=== PATIENT | female | born 1955 | race Caucasian/White ===

== ENCOUNTER → 2019-10-24 12:06 | Outpatient (BNVA) | payer OTHER, SELFPAY | PROVIDERS: PCP Nurse Practitioner Family; Visit Provider Nurse Practitioner Family | DX: N39.0 Urinary tract infection, site not specified (principal); N39.41 Urge incontinence | CPT/HCPCS: 80053; 81001; 87086; 87186 ==

== ENCOUNTER → 2019-12-05 09:47 | Outpatient (BNVA) | payer OTHER, SELFPAY | PROVIDERS: PCP Nurse Practitioner Family; Visit Provider Urology | DX: N39.0 Urinary tract infection, site not specified (principal) | CPT/HCPCS: 81001 ==

== ENCOUNTER → 2021-08-05 11:19 | Outpatient (BNVA) | payer OTHER, SELFPAY | PROVIDERS: PCP Nurse Practitioner Family; Visit Provider Nurse Practitioner Family | DX: N39.41 Urge incontinence (principal); N39.0 Urinary tract infection, site not specified | CPT/HCPCS: 81003; 87086 ==

== ENCOUNTER → 2021-09-19 08:31 | Outpatient (BNVA) | payer MEDICARE, SELFPAY | PROVIDERS: PCP Nurse Practitioner Family; Visit Provider Urology | DX: N39.0 Urinary tract infection, site not specified (principal) | CPT/HCPCS: 81003; 99213 ==

== ENCOUNTER 2021-11-01 12:41 | Outpatient (CLI) | payer MEDICARE, SELFPAY ==
--- NOTE | 2021-11-01 12:54 | MM_ITS ---
WS: [id number] BILATERAL 3D TOMOSYNTHESIS DIGITAL SCREENING MAMMOGRAPHY WITH CAD CLINICAL INFORMATION: SCREEN HISTORY: Screening mammogram. No current complaints. COMPARISON: November 04, 2019 TECHNIQUE: Bilateral CC and MLO views. FINDINGS: Scattered fibroglandular densities bilaterally. No suspicious focal mass, asymmetry, calcifications, or architectural distortion. No evidence of malignancy. MM/[place] [id number] IMPRESSION: BI-RADS: 1-Negative FOLLOW UP: 1 Year Follow-up Recommend return to annual screening mammography.
== END 2021-11-01 12:42 | disposition home or self-care (01) ==
LOC: RAD 12:49
PROVIDERS: PCP Nurse Practitioner Family; Visit Provider Nurse Practitioner Family
DX: Z12.31 Encounter for screening mammogram for malignant neoplasm of breast (principal)
CPT/HCPCS: 77063; 77067

== ENCOUNTER → 2021-12-19 14:51 | Outpatient (BNVA) | payer MEDICARE, SELFPAY | PROVIDERS: PCP Nurse Practitioner Family; Visit Provider Urology | DX: N39.0 Urinary tract infection, site not specified (principal) | CPT/HCPCS: 81003; 87086; 99213 ==

== ENCOUNTER → 2022-01-15 14:47 | Outpatient (BNVA) | payer MEDICARE, SELFPAY | PROVIDERS: PCP Nurse Practitioner Family; Visit Provider Internal Medicine | DX: E11.9 Type 2 diabetes mellitus without complications (principal); N39.0 Urinary tract infection, site not specified; E78.2 Mixed hyperlipidemia; I10 Essential (primary) hypertension; E66.9 Obesity, unspecified; Z68.35 Body mass index [BMI] 35.0-35.9, adult; Z79.4 Long term (current) use of insulin | CPT/HCPCS: 99204 ==

== ENCOUNTER → 2022-01-17 08:06 | Outpatient (BNVA) | payer MEDICARE, SELFPAY | PROVIDERS: PCP Nurse Practitioner Family; Visit Provider Nurse Practitioner Family | DX: N39.0 Urinary tract infection, site not specified (principal) | CPT/HCPCS: 81003; 87086; 99213 ==

== ENCOUNTER 2022-04-14 15:48 | Outpatient (CLI) | payer MEDICARE, SELFPAY ==
[2022-04-14 16:50] LABS: Alanine Aminotransferase 15 U/L (0-33); Albumin Level 3.9 g/dL (3.5-5.2); Alkaline Phosphatase 115 U/L (35-105); Anion Gap 14.6 (5-19); Aspartate Amino Transferase 15 U/L (0-32); Blood Urea Nitrogen 32 mg/dL (8-23); Calcium 9.5 mg/dL (8.5-10.5); Carbon Dioxide 24 mmol/L (22-29); Chloride 103 mmol/L (98-107); Chol HDL Ratio 3.38 mg/dL (0.0-4.40); Cholesterol 169 mg/dL (0-200); Free T4 Free Thyroxine 1.15 ng/dL (0.82-1.77); Globulin 3.3 g/dL (1.3-4.6); Glomerular Filtration Rate 62.8 mL/min (90-130); Glucose 103 mg/dL (65-115); HDL Cholesterol 50 mg/dL (60-100); LDL Cholesterol Calculated 100 mg/dL (50-129); Osmolality Calculated 293 mOsm/kg (285-295); Potassium 3.6 mmol/L (3.5-5.1); Sodium 138 mmol/L (136-145); Thyroid Stimulating Hormone 4.02 uIU/mL (0.27-4.20); Total Bilirubin 0.3 mg/dL (0.15-1.2); Total Protein 7.2 g/dL (6.6-8.7); Triglycerides 95 mg/dL (0-150)
[2022-04-14 17:04] LABS: Estmated Average Glucose 114; Hemoglobin A1C 5.6 % (4.0-6.0)
== END 2022-04-14 15:49 | disposition home or self-care (01) ==
LOC: LAB 15:51
PROVIDERS: PCP Nurse Practitioner Family; Visit Provider Internal Medicine
DX: E11.9 Type 2 diabetes mellitus without complications (principal)
CPT/HCPCS: 36415; 80053; 80061; 83036; 84439; 84443

== ENCOUNTER → 2022-04-17 14:59 | Outpatient (BNVA) | payer MEDICARE, SELFPAY | PROVIDERS: PCP Nurse Practitioner Family; Visit Provider Internal Medicine | DX: E11.9 Type 2 diabetes mellitus without complications (principal); E78.2 Mixed hyperlipidemia; I10 Essential (primary) hypertension; N39.0 Urinary tract infection, site not specified; E66.9 Obesity, unspecified; Z68.34 Body mass index [BMI] 34.0-34.9, adult; Z79.4 Long term (current) use of insulin | CPT/HCPCS: 99214 ==

== ENCOUNTER → 2022-04-21 15:45 | Outpatient (BNVA) | payer MEDICARE, SELFPAY | PROVIDERS: PCP Nurse Practitioner Family; Visit Provider Urology | DX: N30.20 Other chronic cystitis without hematuria (principal); R33.9 Retention of urine, unspecified | CPT/HCPCS: 51798; 81003; 99213 ==

== ENCOUNTER 2022-08-28 07:28 | Outpatient (CLI) | payer MEDICARE, SELFPAY ==
[2022-08-28 08:55] LABS: Alanine Aminotransferase 14 U/L (0-33); Albumin Level 3.9 g/dL (3.5-5.2); Alkaline Phosphatase 106 U/L (35-105); Aspartate Amino Transferase 16 U/L (0-32); Blood Urea Nitrogen 28 mg/dL (8-23); Carbon Dioxide 23 mmol/L (22-29); Chloride 106 mmol/L (98-107); Chol HDL Ratio 3.48 mg/dL (0.0-4.40); Cholesterol 160 mg/dL (0-200); Globulin 3.1 g/dL (1.3-4.6); Glomerular Filtration Rate 49.8 mL/min (90-130); Glucose 92 mg/dL (65-115); HDL Cholesterol 46 mg/dL (60-100); LDL Cholesterol Calculated 92 mg/dL (50-129); Osmolality Calculated 295 mOsm/kg (285-295); Sodium 140 mmol/L (136-145); Total Bilirubin 0.5 mg/dL (0.15-1.2); Triglycerides 108 mg/dL (0-150)
[2022-08-28 08:59] LABS: Estmated Average Glucose 111; Hemoglobin A1C 5.5 % (4.0-6.0)
[2022-08-28 09:03] LABS: Creatinine Urine, Random 123 mg/dL (28-217); Microalbum Creatinine Ratio Ur 8 mg/dL (0-20); Microalbumin Random Urine 1 ug/dL (0-20)
== END 2022-08-28 07:29 | disposition home or self-care (01) ==
PROVIDERS: PCP Nurse Practitioner Family; Visit Provider Internal Medicine
DX: E11.9 Type 2 diabetes mellitus without complications (principal); E78.2 Mixed hyperlipidemia; I10 Essential (primary) hypertension
CPT/HCPCS: 80053; 80061; 82044; 83036

== ENCOUNTER → 2022-09-01 10:16 | Outpatient (BNVA) | payer MEDICARE, SELFPAY | PROVIDERS: PCP Nurse Practitioner Family; Visit Provider Internal Medicine | DX: E11.9 Type 2 diabetes mellitus without complications (principal); N39.0 Urinary tract infection, site not specified; E78.2 Mixed hyperlipidemia; E66.9 Obesity, unspecified; Z79.4 Long term (current) use of insulin; Z68.34 Body mass index [BMI] 34.0-34.9, adult | CPT/HCPCS: 99214 ==

== ENCOUNTER → 2022-09-08 15:18 | Outpatient (BNVA) | payer MEDICARE, SELFPAY | PROVIDERS: PCP Nurse Practitioner Family; Visit Provider Urology | DX: N30.20 Other chronic cystitis without hematuria (principal) | CPT/HCPCS: 81003; 99213 ==

== ENCOUNTER 2022-11-12 14:11 | Outpatient (CLI) | payer MEDICARE, SELFPAY ==
--- NOTE | 2022-11-12 14:23 | MM_ITS ---
WS: [id number] BILATERAL 3D TOMOSYNTHESIS DIGITAL SCREENING MAMMOGRAPHY WITH CAD CLINICAL INFORMATION: SCREENING HISTORY: Screening mammogram. No current complaints. COMPARISON: 2021 TECHNIQUE: Bilateral CC and MLO views. FINDINGS: Scattered fibroglandular densities bilaterally. No suspicious focal mass, asymmetry, calcifications, or architectural distortion. No evidence of malignancy. MM/[place] [id number] IMPRESSION: BI-RADS: 1-Negative FOLLOW UP: 1 Year Follow-up Recommend return to annual screening mammography.
== END 2022-11-12 14:12 | disposition home or self-care (01) ==
LOC: RAD 14:12
PROVIDERS: PCP Nurse Practitioner Family; Visit Provider Nurse Practitioner Family
DX: Z12.31 Encounter for screening mammogram for malignant neoplasm of breast (principal)
CPT/HCPCS: 77063; 77067

== ENCOUNTER 2022-12-23 08:57 | Outpatient (CLI) | payer MEDICARE, SELFPAY ==
[2022-12-23 09:50] LABS: Creatinine Urine, Random 94 mg/dL (28-217); Microalbum Creatinine Ratio Ur 11 mg/dL (0-20); Microalbumin Random Urine 1 ug/dL (0-20)
[2022-12-23 09:52] LABS: Estmated Average Glucose 128; Hemoglobin A1C 6.1 % (4.0-6.0)
[2022-12-23 10:10] LABS: Alanine Aminotransferase 13 U/L (0-33); Alkaline Phosphatase 113 U/L (35-105); Aspartate Amino Transferase 13 U/L (0-32); Blood Urea Nitrogen 28 mg/dL (8-23); Calcium 9.3 mg/dL (8.5-10.5); Carbon Dioxide 26 mmol/L (22-29); Chloride 102 mmol/L (98-107); Chol HDL Ratio 3.38 mg/dL (0.0-4.40); Cholesterol 162 mg/dL (0-200); Globulin 2.9 g/dL (1.3-4.6); Glomerular Filtration Rate 55.5 mL/min (90-130); Glucose 86 mg/dL (65-115); HDL Cholesterol 48 mg/dL (60-100); LDL Cholesterol Calculated 90 mg/dL (50-129); LDL HDL Ratio 1.88 RATIO (0.00-3.22); Osmolality Calculated 291 mOsm/kg (285-295); Sodium 138 mmol/L (136-145); Total Bilirubin 0.4 mg/dL (0.15-1.2); Total Protein 6.9 g/dL (6.6-8.7); Triglycerides 119 mg/dL (0-150)
== END 2022-12-23 08:58 | disposition home or self-care (01) ==
PROVIDERS: PCP Nurse Practitioner Family; Visit Provider Internal Medicine
DX: E11.9 Type 2 diabetes mellitus without complications (principal); I10 Essential (primary) hypertension; Z79.899 Other long term (current) drug therapy
CPT/HCPCS: 36415; 80053; 80061; 82044; 83036

== ENCOUNTER → 2023-01-06 07:56 | Outpatient (BNVA) | payer MEDICARE, SELFPAY | PROVIDERS: PCP Nurse Practitioner Family; Visit Provider Internal Medicine | DX: E11.9 Type 2 diabetes mellitus without complications (principal); N39.0 Urinary tract infection, site not specified; E78.2 Mixed hyperlipidemia; I10 Essential (primary) hypertension; E66.9 Obesity, unspecified; Z79.4 Long term (current) use of insulin; Z68.35 Body mass index [BMI] 35.0-35.9, adult | CPT/HCPCS: 99214 ==

== ENCOUNTER 2023-05-26 16:15 | Outpatient (CLI) | payer MEDICARE, SELFPAY ==
[2023-05-26 17:08] LABS: Estmated Average Glucose 126
[2023-05-26 17:20] LABS: Alanine Aminotransferase 13 U/L (0-33); Albumin Level 4.1 g/dL (3.5-5.2); Alkaline Phosphatase 111 U/L (35-105); Anion Gap 17.8 (5-19); Aspartate Amino Transferase 15 U/L (0-32); Blood Urea Nitrogen 26 mg/dL (8-23); Calcium 9.7 mg/dL (8.5-10.5); Carbon Dioxide 25 mmol/L (22-29); Chloride 101 mmol/L (98-107); Chol HDL Ratio 3.31 mg/dL (0.0-4.40); Cholesterol 169 mg/dL (0-200); Globulin 3.7 g/dL (1.3-4.6); Glomerular Filtration Rate 55.5 mL/min (90-130); Glucose 86 mg/dL (65-115); HDL Cholesterol 51 mg/dL (60-100); LDL Cholesterol Calculated 96 mg/dL (50-129); LDL HDL Ratio 1.88 RATIO (0.00-3.22); Osmolality Calculated 294 mOsm/kg (285-295); Potassium 3.8 mmol/L (3.5-5.1); Sodium 140 mmol/L (136-145); Total Bilirubin 0.4 mg/dL (0.15-1.2); Total Protein 7.8 g/dL (6.6-8.7); Triglycerides 110 mg/dL (0-150)
[2023-05-26 17:50] LABS: Creatinine Urine, Random 37 mg/dL (28-217); Microalbumin Random Urine 5 ug/dL (0-20)
[2023-05-26 17:51] LABS: Microalbum Creatinine Ratio Ur 135 mg/dL (0-20)
== END 2023-05-26 16:16 | disposition home or self-care (01) ==
LOC: LAB 16:18
PROVIDERS: PCP Nurse Practitioner Family; Visit Provider Internal Medicine
DX: N39.0 Urinary tract infection, site not specified (principal); E11.9 Type 2 diabetes mellitus without complications; E78.2 Mixed hyperlipidemia; I10 Essential (primary) hypertension; E66.9 Obesity, unspecified
CPT/HCPCS: 36415; 80053; 80061; 82044; 83036

== ENCOUNTER → 2023-05-29 08:43 | Outpatient (BNVA) | payer MEDICARE, SELFPAY | PROVIDERS: PCP Nurse Practitioner Family; Visit Provider Internal Medicine | DX: E11.9 Type 2 diabetes mellitus without complications (principal); I10 Essential (primary) hypertension; N39.0 Urinary tract infection, site not specified; E78.2 Mixed hyperlipidemia; E66.9 Obesity, unspecified; Z79.4 Long term (current) use of insulin; Z68.35 Body mass index [BMI] 35.0-35.9, adult | CPT/HCPCS: 99214 ==

== ENCOUNTER → 2023-07-06 08:45 | Outpatient (BNVA) | payer MEDICARE, SELFPAY | PROVIDERS: PCP Nurse Practitioner Family; Referring Provider Dermatology; Visit Provider Nurse Practitioner | DX: M17.11 Unilateral primary osteoarthritis, right knee; M25.361 Other instability, right knee; Z46.89 Encounter for fitting and adjustment of other specified devices | CPT/HCPCS: 73560; 73565; 97760; 99204; L1812 ==

== ENCOUNTER 2023-07-06 11:11 | Outpatient (CLI) | payer MEDICARE, SELFPAY | END 2023-07-06 11:12 | disposition home or self-care (01) | LOC: SPT 11:12 | PROVIDERS: PCP Nurse Practitioner Family; Visit Provider Nurse Practitioner | DX: Z46.89 Encounter for fitting and adjustment of other specified devices (principal); M25.361 Other instability, right knee | CPT/HCPCS: 97760; 99204; L1812 ==

== ENCOUNTER 2023-08-24 09:59 | Outpatient (CLI) | payer MEDICARE, SELFPAY ==
[2023-08-24 10:53] LABS: Estmated Average Glucose 117; Hemoglobin A1C 5.7 % (4.0-6.0)
[2023-08-24 10:56] LABS: Alanine Aminotransferase 13 U/L (0-33); Albumin Level 3.9 g/dL (3.5-5.2); Alkaline Phosphatase 119 U/L (35-105); Anion Gap 15.9 (5-19); Aspartate Amino Transferase 15 U/L (0-32); Blood Urea Nitrogen 26 mg/dL (8-23); Calcium 9.2 mg/dL (8.5-10.5); Carbon Dioxide 24 mmol/L (22-29); Chloride 104 mmol/L (98-107); Chol HDL Ratio 3.33 mg/dL (0.0-4.40); Cholesterol 160 mg/dL (0-200); Globulin 3.5 g/dL (1.3-4.6); Glomerular Filtration Rate 55.5 mL/min (90-130); Glucose 91 mg/dL (65-115); HDL Cholesterol 48 mg/dL (60-100); LDL Cholesterol Calculated 95 mg/dL (50-129); LDL HDL Ratio 1.98 RATIO (0.00-3.22); Osmolality Calculated 294 mOsm/kg (285-295); Potassium 3.9 mmol/L (3.5-5.1); Sodium 140 mmol/L (136-145); Total Bilirubin 0.4 mg/dL (0.15-1.2); Total Protein 7.4 g/dL (6.6-8.7); Triglycerides 87 mg/dL (0-150)
[2023-08-24 11:02] LABS: Creatinine Urine, Random 132 mg/dL (28-217); Microalbum Creatinine Ratio Ur 15 mg/dL (0-20); Microalbumin Random Urine 2 ug/dL (0-20)
== END 2023-08-24 10:00 | disposition home or self-care (01) ==
LOC: LAB 10:00
PROVIDERS: PCP Nurse Practitioner Family; Visit Provider Internal Medicine
DX: E11.9 Type 2 diabetes mellitus without complications (principal); I10 Essential (primary) hypertension
CPT/HCPCS: 36415; 80053; 80061; 82044; 83036

== ENCOUNTER → 2023-08-26 07:50 | Outpatient (BNVA) | payer MEDICARE, SELFPAY | PROVIDERS: PCP Nurse Practitioner Family; Visit Provider Internal Medicine | DX: N39.0 Urinary tract infection, site not specified (principal); E11.9 Type 2 diabetes mellitus without complications; E78.2 Mixed hyperlipidemia; I10 Essential (primary) hypertension; E66.9 Obesity, unspecified; Z79.4 Long term (current) use of insulin; Z68.35 Body mass index [BMI] 35.0-35.9, adult | CPT/HCPCS: 99214 ==

== ENCOUNTER 2023-11-30 14:05 | Outpatient (CLI) | payer MEDICARE, SELFPAY ==
[2023-11-30 15:33] LABS: Alanine Aminotransferase 13 U/L (0-33); Albumin Level 4.2 g/dL (3.5-5.2); Alkaline Phosphatase 113 U/L (35-105); Anion Gap 15.9 (5-19); Aspartate Amino Transferase 17 U/L (0-32); Blood Urea Nitrogen 30 mg/dL (8-23); Calcium 9.1 mg/dL (8.5-10.5); Carbon Dioxide 25 mmol/L (22-29); Chloride 100 mmol/L (98-107); Chol HDL Ratio 3.61 mg/dL (0.0-4.40); Cholesterol 159 mg/dL (0-200); Globulin 3.4 g/dL (1.3-4.6); Glomerular Filtration Rate 37.5 mL/min (90-130); Glucose 137 mg/dL (65-115); HDL Cholesterol 44 mg/dL (60-100); LDL Cholesterol Calculated 87 mg/dL (50-129); LDL HDL Ratio 1.98 RATIO (0.00-3.22); Osmolality Calculated 292 mOsm/kg (285-295); Potassium 3.9 mmol/L (3.5-5.1); Sodium 137 mmol/L (136-145); Total Bilirubin 0.5 mg/dL (0.15-1.2); Total Protein 7.6 g/dL (6.6-8.7); Triglycerides 138 mg/dL (0-150)
[2023-11-30 15:46] LABS: Estmated Average Glucose 126
[2023-11-30 16:38] LABS: Creatinine Urine, Random 88 mg/dL (28-217); Microalbum Creatinine Ratio Ur 11 mg/dL (0-20); Microalbumin Random Urine 1 ug/dL (0-20)
== END 2023-11-30 14:06 | disposition home or self-care (01) ==
LOC: LAB 14:07
PROVIDERS: PCP Nurse Practitioner Family; Visit Provider Internal Medicine
DX: E11.9 Type 2 diabetes mellitus without complications (principal); E78.2 Mixed hyperlipidemia; I10 Essential (primary) hypertension
CPT/HCPCS: 36415; 80053; 80061; 82044; 83036

== ENCOUNTER → 2023-12-02 08:33 | Outpatient (BNVA) | payer MEDICARE, SELFPAY | PROVIDERS: PCP Nurse Practitioner Family; Visit Provider Internal Medicine | DX: E11.9 Type 2 diabetes mellitus without complications (principal); N39.0 Urinary tract infection, site not specified; E78.2 Mixed hyperlipidemia; I10 Essential (primary) hypertension; E66.9 Obesity, unspecified; Z68.35 Body mass index [BMI] 35.0-35.9, adult; Z79.4 Long term (current) use of insulin | CPT/HCPCS: 99214 ==

== ENCOUNTER 2023-12-03 12:57 | Outpatient (CLI) | payer MEDICARE, SELFPAY ==
--- NOTE | 2023-12-03 13:06 | MM_ITS ---
WS: [id number] BILATERAL SCREENING DIGITAL TOMOSYNTHESIS MAMMOGRAM WITH CAD HISTORY: SCREENING COMPARISON: 11/12/2022, 11/01/2021 and 11/04/2019 Bilateral CC and MLO views with tomosynthesis and synthetic mammography submitted. Computer aided det ection analyzed. Breast composition: There are scattered areas of fibroglandular density. No suspicious masses, microc alcifications or architectural distortion. Stable asymmetries within each breast. No suspicious new m ass or nodule. No calcifications. MM/[place] [id number] IMPRESSION: BI-RADS: 2-Benign FOLLOW UP: 1 Year Follow-up
== END 2023-12-03 12:58 | disposition home or self-care (01) ==
LOC: RAD 12:57
PROVIDERS: PCP Nurse Practitioner Family; Visit Provider Nurse Practitioner Family
DX: Z12.31 Encounter for screening mammogram for malignant neoplasm of breast (principal); R92.323 Mammographic fibroglandular density, bilateral breasts; R92.1 Mammographic calcification found on diagnostic imaging of breast
CPT/HCPCS: 77063; 77067

== ENCOUNTER 2023-12-09 10:27 | Outpatient (CLI) | payer MEDICARE, SELFPAY ==
[2023-12-09 11:04] LABS: Anion Gap 15.6 (5-19); Blood Urea Nitrogen 21 mg/dL (8-23); Calcium 8.7 mg/dL (8.5-10.5); Carbon Dioxide 22 mmol/L (22-29); Chloride 99 mmol/L (98-107); Glomerular Filtration Rate 55.3 mL/min (90-130); Glucose 203 mg/dL (65-115); Osmolality Calculated 283 mOsm/kg (285-295); Potassium 4.6 mmol/L (3.5-5.1); Sodium 132 mmol/L (136-145)
== END 2023-12-09 10:28 | disposition home or self-care (01) ==
LOC: LAB 10:29
PROVIDERS: PCP Nurse Practitioner Family; Visit Provider Internal Medicine
DX: E11.9 Type 2 diabetes mellitus without complications (principal); E78.2 Mixed hyperlipidemia; I10 Essential (primary) hypertension
CPT/HCPCS: 36415; 80048

== ENCOUNTER 2024-02-19 11:19 | Outpatient (CLI) | payer MEDICARE, SELFPAY ==
[2024-02-19 11:52] LABS: Estmated Average Glucose 131; Hemoglobin A1C 6.2 % (4.0-6.0)
[2024-02-19 11:56] LABS: Alanine Aminotransferase 13 U/L (0-33); Albumin Level 4.1 g/dL (3.5-5.2); Alkaline Phosphatase 110 U/L (35-105); Anion Gap 14.9 (5-19); Aspartate Amino Transferase 14 U/L (0-32); Blood Urea Nitrogen 29 mg/dL (8-23); Calcium 8.9 mg/dL (8.5-10.5); Carbon Dioxide 25 mmol/L (22-29); Chloride 99 mmol/L (98-107); Chol HDL Ratio 3.13 mg/dL (0.0-4.40); Cholesterol 169 mg/dL (0-200); Globulin 3.3 g/dL (1.3-4.6); Glomerular Filtration Rate 55.3 mL/min (90-130); Glucose 134 mg/dL (65-115); HDL Cholesterol 54 mg/dL (60-100); LDL Cholesterol Calculated 97 mg/dL (50-129); Osmolality Calculated 288 mOsm/kg (285-295); Potassium 3.9 mmol/L (3.5-5.1); Sodium 135 mmol/L (136-145); Total Bilirubin 0.5 mg/dL (0.15-1.2); Total Protein 7.4 g/dL (6.6-8.7); Triglycerides 91 mg/dL (0-150)
[2024-02-19 11:58] LABS: Creatinine Urine, Random 109 mg/dL (28-217); Microalbum Creatinine Ratio Ur 9 mg/dL (0-20); Microalbumin Random Urine 1 ug/dL (0-20)
== END 2024-02-19 11:20 | disposition home or self-care (01) ==
LOC: LAB 11:21
PROVIDERS: PCP Nurse Practitioner Family; Visit Provider Internal Medicine
DX: E11.9 Type 2 diabetes mellitus without complications (principal); E78.2 Mixed hyperlipidemia
CPT/HCPCS: 36415; 80053; 80061; 82044; 83036

== ENCOUNTER → 2024-02-26 07:50 | Outpatient (BNVA) | payer MEDICARE, SELFPAY | PROVIDERS: PCP Nurse Practitioner Family; Visit Provider Internal Medicine | DX: E11.9 Type 2 diabetes mellitus without complications (principal); E78.2 Mixed hyperlipidemia; I10 Essential (primary) hypertension; N39.0 Urinary tract infection, site not specified; E66.9 Obesity, unspecified; Z79.4 Long term (current) use of insulin; Z68.35 Body mass index [BMI] 35.0-35.9, adult | CPT/HCPCS: 99214 ==

== ENCOUNTER 2024-08-19 12:35 | Outpatient (CLI) | payer MEDICARE, SELFPAY ==
[2024-08-19 13:18] LABS: Estmated Average Glucose 131; Hemoglobin A1C 6.2 % (4.0-6.0)
[2024-08-19 13:21] LABS: Alanine Aminotransferase 12 U/L (0-33); Albumin Level 3.9 g/dL (3.5-5.2); Alkaline Phosphatase 101 U/L (35-105); Aspartate Amino Transferase 13 U/L (0-32); Blood Urea Nitrogen 23 mg/dL (8-23); Carbon Dioxide 23 mmol/L (22-29); Chloride 106 mmol/L (98-107); Chol HDL Ratio 3.35 mg/dL (0.0-4.40); Cholesterol 154 mg/dL (0-200); Globulin 2.9 g/dL (1.3-4.6); Glomerular Filtration Rate 55.3 mL/min (90-130); Glucose 182 mg/dL (65-115); HDL Cholesterol 46 mg/dL (60-100); LDL Cholesterol Calculated 81 mg/dL (50-129); LDL HDL Ratio 1.76 RATIO (0.00-3.22); Osmolality Calculated 300 mOsm/kg (285-295); Sodium 141 mmol/L (136-145); Total Bilirubin 0.5 mg/dL (0.15-1.2); Total Protein 6.8 g/dL (6.6-8.7); Triglycerides 135 mg/dL (0-150)
[2024-08-19 13:37] LABS: Creatinine Urine, Random 155 mg/dL (28-217); Microalbum Creatinine Ratio Ur 6 mg/dL (0-20); Microalbumin Random Urine 1 ug/dL (0-20)
== END 2024-08-19 12:36 | disposition home or self-care (01) ==
LOC: LAB 12:37
PROVIDERS: PCP Nurse Practitioner Family; Visit Provider Internal Medicine
DX: E11.9 Type 2 diabetes mellitus without complications (principal); E78.2 Mixed hyperlipidemia; I10 Essential (primary) hypertension
CPT/HCPCS: 36415; 80053; 80061; 82044; 83036

== ENCOUNTER 2024-09-16 08:33 | Emergency (ER) | payer MEDICARE, SELFPAY ==
[2024-09-16 08:39] VITALS: BP 153/97; PULSE 89; RESP 16; TEMP 36.6; O2SAT 97
--- NOTE | 2024-09-16 08:43 | XR_ITS ---
WS: [id number] KUB, AP view, 09/16/2024 Clinical Data: constipation Comparison: None. Findings: No abnormal intraabdominal masses are seen. There is no dilatated small bowel or evidence of obstruction. There is a large amount of fecal material throughout the colon. There is a 1.1 cm calcification to the right of the L2-L3 disc level which could represent a renal or ureteral calcification. There are phleboliths in the true pelvis. XR/XR KUB [id number] Impression: 1. Large amount of fecal material in the colon. 2. Possible right renal or ureteral calcification.
--- NOTE | 2024-09-16 08:45 | W.ED.ABDPA2 ---
HPI - Abdominal Pain General: Chief Complaint: Abdominal Pain Stated Complaint: trouble having bowel movement Time Seen by Provider: 09/16/24 08:37 Source: patient Mode of arrival: ambulatory Limitations: no limitations History of Present Illness: 68-year-old female who states that she has been constipated states she has not had a bowel movement this week has been feeling bloated. She denies any abdominal pain she denies any vomiting denies any fevers. She has tried [id number] meds with no relief Associated Symptoms: Reports constipation; Denies chills, diarrhea, dysuria, fever(s), nausea and vomiting Related Data Home Medications ?Medication ?Instructions ?Recorded ?Confirmed atorvastatin 20 mg tablet (Lipitor) 20 mg PO DAILY 10/13/19 09/16/24 omeprazole magnesium 20 mg 20 mg PO .qod 08/05/21 09/16/24 tablet,delayed release (Prilosec OTC) sertraline 25 mg tablet 12.5 mg PO DAILY 08/05/21 09/16/24 ciprofloxacin HCl 500 mg tablet 500 mg PO BID 09/16/24 09/16/24 hydrochlorothiazide 12.5 mg tablet 12.5 mg PO DAILY 09/16/24 09/16/24 lisinopril 5 mg tablet 5 mg PO DAILY 09/16/24 09/16/24 solifenacin 5 mg tablet 5 mg PO DAILY 09/16/24 09/16/24 Previous Rx's ?Medication ?Instructions ?Recorded insulin glargine 100 unit/mL (3 42 unit (0.42 mL) SUBCUT DAILY #45 02/26/24 mL) subcutaneous pen (Lantus mL Solostar U-100 Insulin) insulin lispro 100 unit/mL 12 unit (0.12 mL) SUBCUT TID #45 mL 02/26/24 subcutaneous pen (Humalog KwikPen (U-100) Insulin) ondansetron 4 mg disintegrating 4 mg PO Q6H PRN nausea and 09/16/24 tablet vomiting #14 tabs peg 3350-electrolytes 236 240 ml PO Q10M #4,000 mL 09/16/24 gram-22.74 gram-6.74 gram-5.86 gram solution (Golytely) Allergies Allergy/AdvReac Type Severity Reaction Status Date / Time codeine Allergy Unknown Unknown Verified 02/26/24 07:22 erythromycin base Allergy Unknown Unknown Verified 02/26/24 07:22 Penicillins Allergy Unknown Unknown Verified 02/26/24 07:22 sulfamethoxazole (From Allergy Unknown Unknown Verified 02/26/24 07:22 Bactrim) trimethoprim (From Bactrim) Allergy Unknown Unknown Verified 02/26/24 07:22 Sulfa (Sulfonamide Allergy Unknown Verified 02/26/24 07:22 Antibiotics) metformin AdvReac ADR-Abdominal Verified 02/26/24 07:22 Pain Review of Systems Const: Denies: fever(s), chills, body aches or change in appetite ENMT: Denies: throat pain or dental pain Card: Denies: chest pain Resp: Denies: dyspnea GI: Reports: constipation; Denies: abdominal pain, nausea, vomiting or diarrhea : Denies: dysuria Musc: Denies: neck pain or back pain Skin/Breast: Denies: rash Neuro: Denies: headache(s) PFSH ED PFSH: Medical History Instability of right knee joint Primary osteoarthritis of right knee Right knee pain Chronic cystitis Hyperlipidemia HTN (hypertension) Overactive bladder Esophageal reflux Female stress incontinence Dysuria Anxiety and depression Enthesopathy, spinal Type 2 diabetes mellitus Urgency incontinence Recurrent UTI Surgical History Hx of cholecystectomy History of hysterectomy Hx of neck surgery Family History Father , at age 83 Diabetes CAD (coronary artery disease) Mother , at age 87 Diabetes Social History Smoking and tobacco/nicotine status: never used tobacco/nicotine Alcohol intake: never Adopted: No Caregiver/support person: No Lives independently: No Household members: spouse Marital status: Current occupational status: employed Current occupation: [employer] Current gender identity: Female Physical Exam Const: COMMON NORMALS: no acute distress, patient oriented x3 and healthy appearing HENMT: COMMON NORMALS: normocephalic and atraumatic HEAD & SCALP: normocephalic and atraumatic Eye: COMMON NORMALS: conjunctivae normal CONJUNCTIVA: Yes conjunctivae normal Neck/C-Spine: COMMON NORMALS: full ROM and supple Chest: COMMONS NORMALS: normal inspection of the chest Resp: COMMON NORMALS: normal respiratory effort, No retractions, No use of accessory muscles and clear to auscultation bilaterally AUSCULTATION: clear to auscultation bilaterally Cardio: COMMON NORMALS: regular rate, regular rhythm and No murmurs present (Cardio) RATE: regular rate RHYTHM: regular rhythm GI: COMMON NORMALS: Normal to inspection, nondistended, normoactive bowel sounds present, Soft to palpation, non-tender and no masses PALPATION: Yes Soft to palpation Extremity: COMMON NORMALS: normal to inspection and full ROM Neuro: COMMON NORMALS: patient oriented x3, moves all extremities and no focal motor deficits Psych: COMMON NORMALS: mental status grossly normal, Normal thought process present and cooperative THOUGHT PROCESS: Normal thought process present Skin: COMMON NORMALS: no rashes or lesions noted and no wounds GENERAL SKIN EXAM: no rashes or lesions noted Course Vital Signs: Vital signs: Vital Signs Temperature 97.9 F 09/16/24 08:39 Pulse Rate 88 09/16/24 10:54 Respiratory Rate 16 09/16/24 08:39 Blood Pressure 171/99 09/16/24 10:54 Pulse Oximetry 98 09/16/24 10:54 Oxygen Delivery Me thod Room Air 09/16/24 08:39 MDM - Abdominal Pain Medical Decision Making Patient presents here with constipation she has no pain her abdominal exam is benign had a small bowel movement after lactulose we will place her on GoLytely she is to return if worsening she understands agrees plan Medical Records I reviewed the patient's medical records. Lab Data Labs/Radiology: Radiology Impressions KUB X-Ray 09/16/24 08:43 Impression: 1. Large amount of fecal material in the colon. 2. Possible right renal or ureteral calcification. All radiology interpretation(s) finalized by discharge Discharge Plan Discharge Patient Disposition: Home Clinical Impression: Constipation Condition: Stable Prescriptions: New peg 3350-electrolytes [Golytely] 236-22.74-6.74 -5.86 gram recon soln 240 ml PO Q10M Qty: 4000 0RF Rx Instructions: until fecal effluent is clear ondansetron 4 mg tablet,disintegrating 4 mg PO Q6H PRN (Reason: nausea and vomiting) Qty: 14 0RF No Action atorvastatin [Lipitor] 20 mg tablet 20 mg PO DAILY omeprazole magnesium [Prilosec OTC] 20 mg tablet,delayed release (DR/EC) 20 mg PO .qod sertraline 25 mg tablet 12.5 mg PO DAILY insulin glargine [Lantus Solostar U-100 Insulin] 100 unit/mL (3 mL) insulin pen 42 unit SUBCUT DAILY Qty: 45 1RF insulin lispro [Humalog KwikPen Insulin] 100 unit/mL insulin pen 12 unit SUBCUT TID Qty: 45 1RF Rx Instructions: before meals lisinopril 5 mg tablet 5 mg PO DAILY solifenacin 5 mg tablet 5 mg PO DAILY hydrochlorothiazide 12.5 mg tablet 12.5 mg PO DAILY ciprofloxacin HCl 500 mg tablet 500 mg PO BID Discharge Orders: Discharge ED (Routine); Ordered 09/16/24 Ordered By: Gabbie Jones Referrals: Myrna Nixon FNP [Primary Care Provider, Unknown] Discharge Diet: Advance as tolerated Discharge Activity: Resume usual activity Patient Instructions: Constipation (ED) Print Language: Malagasy Coding Level of Care Code ED Director Dance for Naa Espinoza
[2024-09-16 09:04] VITALS: BP 142/87; PULSE 81; O2SAT 95
[2024-09-16] MEDS: lactulose oral liq 20 gm/30 mL UDC 30 GM PO (09:10)
[2024-09-16] MEDS: Fleet Enema 133 mL Enema PR (09:49)
[2024-09-16 10:54] VITALS: BP 171/99; PULSE 88; O2SAT 98
== END 2024-09-16 10:56 | disposition home or self-care (01) ==
PROVIDERS: Emergency Provider Emergency Medicine; PCP Nurse Practitioner Family
DX: K59.00 Constipation, unspecified (principal); Z79.4 Long term (current) use of insulin; E78.5 Hyperlipidemia, unspecified; E11.9 Type 2 diabetes mellitus without complications; I10 Essential (primary) hypertension
CPT/HCPCS: 74018; 99283; J9999

== ENCOUNTER 2024-11-29 11:41 | Outpatient (CLI) | payer MEDICARE, SELFPAY ==
[2024-11-29 12:47] LABS: Alanine Aminotransferase 13 U/L (0-33); Albumin Level 3.8 g/dL (3.5-5.2); Alkaline Phosphatase 116 U/L (35-105); Anion Gap 15.2 (5-19); Aspartate Amino Transferase 14 U/L (0-32); Blood Urea Nitrogen 19 mg/dL (8-23); Calcium 9.4 mg/dL (8.5-10.5); Carbon Dioxide 25 mmol/L (22-29); Chloride 100 mmol/L (98-107); Cholesterol 171 mg/dL (0-200); Globulin 3.2 g/dL (1.3-4.6); Glucose 147 mg/dL (65-115); HDL Cholesterol 47 mg/dL (60-100); Osmolality Calculated 287 mOsm/kg (285-295); Potassium 4.2 mmol/L (3.5-5.1); Sodium 136 mmol/L (136-145); Total Protein 7.0 g/dL (6.6-8.7); Triglycerides 101 mg/dL (0-150)
[2024-11-29 12:51] LABS: Estmated Average Glucose 151; Hemoglobin A1C 6.9 % (4.0-6.0)
[2024-11-29 12:57] LABS: Creatinine Urine, Random 110 mg/dL (28-217); Microalbum Creatinine Ratio Ur 9 mg/dL (0-20)
== END 2024-11-29 11:42 | disposition home or self-care (01) ==
LOC: LAB 11:44
PROVIDERS: PCP Nurse Practitioner Family; Visit Provider Internal Medicine
DX: E11.9 Type 2 diabetes mellitus without complications (principal); E78.2 Mixed hyperlipidemia; I10 Essential (primary) hypertension
CPT/HCPCS: 36415; 80053; 80061; 82044; 83036

== ENCOUNTER → 2024-12-01 11:21 | Outpatient (BNVA) | payer MEDICARE, SELFPAY | PROVIDERS: PCP Nurse Practitioner Family; Visit Provider Internal Medicine | DX: E11.9 Type 2 diabetes mellitus without complications (principal); E66.9 Obesity, unspecified; I10 Essential (primary) hypertension; E78.2 Mixed hyperlipidemia | CPT/HCPCS: 99214 ==

== ENCOUNTER 2024-12-05 12:07 | Outpatient (CLI) | payer MEDICARE, SELFPAY ==
--- NOTE | 2024-12-05 12:40 | MM_ITS ---
WS: [id number] BILATERAL 3D TOMOSYNTHESIS DIGITAL SCREENING MAMMOGRAM WITH CAD CLINICAL INFORMATION: SCREENING HISTORY: Screening mammogram. No current complaints. COMPARISON: 2023 TECHNIQUE: Bilateral CC and MLO views. FINDINGS: Fatty-replaced breasts bilaterally. No suspicious focal mass, asymmetry, calcifications, or architectural distortion. No evidence of malignancy. MM/MM scr BI tomosynthesis [id number] IMPRESSION: DENSITY: The breasts are almost entirely fatty. BI-RADS: 1 - Negative. FOLLOW UP: 1 Year Follow-up Recommend return to annual screening mammography.
== END 2024-12-05 12:08 | disposition home or self-care (01) ==
LOC: RAD 12:08
PROVIDERS: PCP Nurse Practitioner Family; Visit Provider Nurse Practitioner Family
DX: Z12.31 Encounter for screening mammogram for malignant neoplasm of breast (principal); R92.313 Mammographic fatty tissue density, bilateral breasts
CPT/HCPCS: 77063; 77067

== ENCOUNTER → 2024-12-07 08:55 | Outpatient (BNVA) | payer MEDICARE, SELFPAY | PROVIDERS: PCP Nurse Practitioner Family; Visit Provider Nurse Practitioner Family | DX: L71.0 Perioral dermatitis (principal); L57.8 Other skin changes due to chronic exposure to nonionizing radiation; D22.5 Melanocytic nevi of trunk | CPT/HCPCS: 99204 ==

== ENCOUNTER 2025-02-27 12:27 | Outpatient (CLI) | payer MEDICARE, SELFPAY ==
[2025-02-27 13:08] LABS: Estmated Average Glucose 120; Hemoglobin A1C 5.8 % (4.0-6.0)
[2025-02-27 13:18] LABS: Creatinine Urine, Random 273 mg/dL (28-217); Microalbum Creatinine Ratio Ur 7 mg/dL (0-20)
[2025-02-27 13:24] LABS: Alanine Aminotransferase 11 U/L (0-33); Albumin Level 4.1 g/dL (3.5-5.2); Alkaline Phosphatase 112 U/L (35-105); Anion Gap 20.1 (5-19); Aspartate Amino Transferase 13 U/L (0-32); Blood Urea Nitrogen 19 mg/dL (8-23); Calcium 9.4 mg/dL (8.5-10.5); Carbon Dioxide 23 mmol/L (22-29); Chloride 95 mmol/L (98-107); Cholesterol 138 mg/dL (0-200); Globulin 3.3 g/dL (1.3-4.6); Glucose 153 mg/dL (65-115); HDL Cholesterol 41 mg/dL (60-100); Osmolality Calculated 283 mOsm/kg (285-295); Potassium 4.1 mmol/L (3.5-5.1); Sodium 134 mmol/L (136-145); Total Protein 7.4 g/dL (6.6-8.7); Triglycerides 131 mg/dL (0-150)
== END 2025-02-27 12:28 | disposition home or self-care (01) ==
LOC: LAB 12:29
PROVIDERS: PCP Nurse Practitioner Family; Visit Provider Internal Medicine
DX: E11.9 Type 2 diabetes mellitus without complications (principal); E66.9 Obesity, unspecified; I10 Essential (primary) hypertension; E78.2 Mixed hyperlipidemia; N39.0 Urinary tract infection, site not specified
CPT/HCPCS: 36415; 80053; 80061; 82044; 83036

== ENCOUNTER → 2025-03-03 11:04 | Outpatient (BNVA) | payer MEDICARE, SELFPAY | PROVIDERS: PCP Nurse Practitioner Family; Visit Provider Internal Medicine | DX: N39.0 Urinary tract infection, site not specified (principal); E11.9 Type 2 diabetes mellitus without complications; E78.2 Mixed hyperlipidemia; I10 Essential (primary) hypertension; E66.9 Obesity, unspecified; Z79.4 Long term (current) use of insulin | CPT/HCPCS: 99214 ==

== ENCOUNTER → 2025-03-17 10:05 | Outpatient (BNVA) | payer MEDICARE, SELFPAY | PROVIDERS: PCP Nurse Practitioner Family; Visit Provider Nurse Practitioner Family | DX: L71.0 Perioral dermatitis (principal); L82.1 Other seborrheic keratosis; D18.01 Hemangioma of skin and subcutaneous tissue; L81.4 Other melanin hyperpigmentation; L57.8 Other skin changes due to chronic exposure to nonionizing radiation; D48.5 Neoplasm of uncertain behavior of skin | CPT/HCPCS: 11102; 99213 ==

== ENCOUNTER → 2025-04-03 09:37 | Outpatient (BNVA) | payer MEDICARE, SELFPAY | PROVIDERS: PCP Nurse Practitioner Family; Visit Provider Nurse Practitioner | DX: M19.011 Primary osteoarthritis, right shoulder (principal); R29.898 Other symptoms and signs involving the musculoskeletal system | CPT/HCPCS: 73030; 99214 ==

== ENCOUNTER 2025-04-11 12:39 | Outpatient (CLI) | payer MEDICARE, SELFPAY ==
--- NOTE | 2025-04-11 13:00 | MRR_ITS ---
PROCEDURE INFORMATION: Exam: MR Right Upper Extremity Joint Without Contrast; Shoulder Exam date and time: 04/11/2025 1:33 PM Age: 69 years old Clinical indication: Shoulder; Right; Pain x 2 months, no known inj, limited range of motion; Additional info: Right shoulder pain. Concern of rc tear. No history of recent trauma or surgery is provided. TECHNIQUE: Imaging protocol: Magnetic resonance imaging of the right upper extremity without contrast. Exam focused on the shoulder. 167image(s) are provided. COMPARISON: 1. CR XR shoulder RT min 2V* [id number] 04/03/2025 9:44 AM 2[place] [id number] 03/24/2025 10:03 AM. No previous MRI of the shoulder is currently available. FINDINGS: Bones/joints: There is some motion artifact present. No diffuse acute abnormal marrow signal intensity is appreciated. There is a small amount of joint fluid present along with some fluid stranding of the subacromial and subdeltoid margins. There is hypertrophic degeneration, signal of the acromioclavicular junction. There is associated subacromial bulky spurring and narrowing. There are some subchondral cystic related changes present. Glenoid labrum: There are some labral degenerative, edge fraying type appearing changes along with some subtle fluid for example about the superior anterior and posterior margins and could also represent some fissuring, tearing on these non arthrogram views. No acute adjacent marrow signal intensity is currently appreciated. There is some adjacent ligamentous averaging. Supraspinatus tendon: Supraspinatus demonstrates some distal full-thickness tearing along with some stranding along the musculotendinous junction. For example, there appears to be some slight tendon substance separation of around 7 mm with mid to posterior portion predominance. Infraspinatus tendon: Infraspinatus demonstrates some distal articular surface partial-thickness tearing with some stranding along the musculotendinous junction. Subscapularis tendon: Subscapularis demonstrates some distal articular surface partial-thickness tearing with musculotendinous fluid stranding. Some of the distal signal appears to extend through suggestive of limited focal distal full-thickness tearing. Teres minor tendon: Teres minor demonstrates some tendinopathy with some distal articular surface fraying. Tendon of biceps brachii: The long head biceps tendon course appears maintained of the bicipital groove with some tendon sheath fluid and some superior tendinopathy appearance. Coracoclavicular ligament: The coracoclavicular ligamentous components appear grossly intact. Glenohumeral ligaments: There is slight thickening of the joint capsule, ligamentous components with the anterior superior predominance indicative of sprain related sequela. Soft tissues: No significant subcutaneous fluid collections are appreciated. No other significant interval changes are appreciated. MR/MR shoulder RT wo con* [id number] IMPRESSION: 1. There is some distal focal full-thickness tearing of the supraspinatus along with some articular surface partial-thickness tearing changes of the adjacent subscapularis and infraspinatus. No complete tearing with muscular retraction is currently appreciated. 2. There is hypertrophic degeneration of the acromioclavicular junction with bulky spurring and subacromial narrowing contributing to indentation about the myotendinous junction supraspinatus predominantly.
== END 2025-04-11 12:40 | disposition home or self-care (01) ==
LOC: RAD 12:41
PROVIDERS: PCP Nurse Practitioner Family; Visit Provider Nurse Practitioner
DX: M25.511 Pain in right shoulder (principal); R29.898 Other symptoms and signs involving the musculoskeletal system; M75.121 Complete rotator cuff tear or rupture of right shoulder, not specified as traumatic; M19.011 Primary osteoarthritis, right shoulder
CPT/HCPCS: 73221

== ENCOUNTER → 2025-04-21 10:26 | Outpatient (BNVA) | payer MEDICARE, SELFPAY | PROVIDERS: PCP Nurse Practitioner Family; Visit Provider Nurse Practitioner | DX: Z01.818 Encounter for other preprocedural examination (principal); E11.9 Type 2 diabetes mellitus without complications; I10 Essential (primary) hypertension | CPT/HCPCS: 36415; 80053; 80061; 81001; 82044; 83036; 85025; 87077; 87086; 87186 ==

== ENCOUNTER 2025-05-04 07:18 | Day surgery (SDC) | payer MEDICARE, SELFPAY ==
[2025-05-04] VITALS (14 sets, daily range): BP systolic 111–139; BP diastolic 66–93; PULSE 74–92; RESP 11–19; TEMP 36.1–36.7; O2SAT 92–100; BMI 30.7
--- NOTE | 2025-05-04 08:10 | ANES.PREANE2 ---
Pre-Anesthetic Assessment Height/Weight: Height 5 ft 6 in Weight 190 lb Temp Pulse Resp BP Pulse Ox O2 Del Method 97.4 F L 92 16 111/70 96 Room Air 05/04/25 08:00 05/04/25 08:00 05/04/25 08:00 05/04/25 08:00 05/04/25 08:00 05/04/25 08:02 Preop Diagnosis: Rotator cuff tear Operation Date: 05/04/25 08:50 Proposed Procedures p Rotator Cuff Repair - Open(Right) - Vijaya Headley MD s Acromioplasty(Right) - Vijaya Headley MD s Distal Clavicle Resection(Right) - Vijaya Healdey MD Was Beta Joe taken within 24 hours: N/A Was Clonidine taken within 24 hours: N/A Last intake: Intake Last Liquid Date 05/03/25 Last Liquid Time 18:00 Last Solid Date 05/03/25 Last Solid Time 15:00 Exam alert, oriented x 3, clear to auscultation bilaterally and regular rate & rhythm Airway Submandibular: within normal limits Cervical ROM: within normal limits Mallampati: Class III Dentition: full Anesthetic Plan ASA status: 3 Anesthesia: General Other: No prior issues with anesthesia NPO since yesterday evening History of hypertension on lisinopril and HCTZ IDDM, preop BS. Tirzepatide last taken 04/21/2025 GERD on Prilosec. No current symptoms Labs reviewed from 04/21/2025 and acceptable for procedure. NA 135, K+ 4.0 Plan for general anesthesia with preop nerve block Medications/Allergies Home Medications ?Medication ?Instructions ?Recorded ?Confirmed ?Last Taken ?Type atorvastatin 20 mg tablet (Lipitor) 20 mg PO DAILY 10/13/19 05/03/25 05/03/25 History omeprazole magnesium 20 mg 20 mg PO .qod 08/05/21 05/03/25 05/03/25 History tablet,delayed release (Prilosec OTC) sertraline 25 mg tablet 12.5 mg PO DAILY 08/05/21 05/03/25 05/03/25 History hydrochlorothiazide 12.5 mg tablet 12.5 mg PO DAILY 09/16/24 05/03/25 05/03/25 History lisinopril 5 mg tablet 5 mg PO DAILY 09/16/24 05/03/25 05/03/25 History ondansetron 4 mg disintegrating 4 mg PO Q6H PRN nausea and 09/16/24 05/03/25 05/03/25 Rx tablet vomiting #14 tabs solifenacin 5 mg tablet 5 mg PO DAILY 09/16/24 05/03/25 05/03/25 History tramadol 50 mg tablet 50 mg PO Q8H PRN pain #21 tabs 04/26/25 05/03/25 05/03/25 Rx tirzepatide 2.5 mg/0.5 mL 2.5 mg (0.5 mL) SUBCUT Q7D 1 month 05/01/25 05/03/25 04/21/25 Rx subcutaneous pen injector #2.5 mL (Mounsantaro) insulin glargine 100 unit/mL (3 42 unit SUBCUT DAILY 05/03/25 05/03/25 05/03/25 History mL) subcutaneous pen (Lantus Solostar U-100 Insulin) Allergies Allergy/AdvReac Type Severity Reaction Status Date / Time codeine Allergy Unknown Unknown Verified 04/21/25 08:58 erythromycin base Allergy Unknown Unknown Verified 04/21/25 08:58 Penicillins Allergy Unknown Unknown Verified 04/21/25 08:58 sulfamethoxazole (From Allergy Unknown Unknown Verified 04/21/25 08:58 Bactrim) trimethoprim (From Bactrim) Allergy Unknown Unknown Verified 04/21/25 08:58 Sulfa (Sulfonamide Allergy Unknown Verified 04/21/25 08:58 Antibiotics) metformin AdvReac ADR-Abdominal Verified 04/21/25 08:58 Pain PFSH Anesthesia Medical History (Updated 04/27/25 @ 14:01 by SUNG Summers) Osteoarthritis of right acromioclavicular joint Nontraumatic incomplete tear of right rotator cuff Rotator cuff arthropathy of right shoulder Primary osteoarthritis, right shoulder Weakness of right shoulder Right shoulder pain Instability of right knee joint Primary osteoarthritis of right knee Right knee pain Chronic cystitis Hyperlipidemia HTN (hypertension) Overactive bladder Esophageal reflux Female stress incontinence Dysuria Anxiety and depression Enthesopathy, spinal Type 2 diabetes mellitus Urgency incontinence Recurrent UTI Surgical History Hx of cholecystectomy History of hysterectomy Hx of neck surgery Family History Father , at age 83 Diabetes CAD (coronary artery disease) Mother , at age 87 Diabetes Social History Smoking and tobacco/nicotine status: never used tobacco/nicotine Alcohol intake: never Adopted: No Caregiver/support person: No Lives independently: No Household members: spouse Marital status: Current occupational status: employed Current occupation: [employer] Current gender identity: Female
[2025-05-04] MEDS: acetaminophen 1,000 MG/100 ML PIGGYBACK 400 MG IV (08:35)
--- NOTE | 2025-05-04 08:56 | ANES.PREANE2 ---
Pre-Anesthetic Assessment Height/Weight: Height 5 ft 6 in Weight 190 lb Temp Pulse Resp BP Pulse Ox O2 Del Method 97.4 F L 92 16 111/70 96 Room Air 05/04/25 08:00 05/04/25 08:00 05/04/25 08:00 05/04/25 08:00 05/04/25 08:00 05/04/25 08:02 Preop Diagnosis: Rotator cuff tear Operation Date: 05/04/25 08:50 Proposed Procedures p Rotator Cuff Repair - Open(Right) - Vijaya Headley MD s Acromioplasty(Right) - Vijaya Headley MD s Distal Clavicle Resection(Right) - Vijaya Headley MD Was Beta Joe taken within 24 hours: N/A Was Clonidine taken within 24 hours: N/A Last intake: Intake Last Liquid Date 05/03/25 Last Liquid Time 18:00 Last Solid Date 05/03/25 Last Solid Time 15:00 Social No alcohol and No tobacco Exam alert, oriented x 3, clear to auscultation bilaterally and regular rate & rhythm Airway Submandibular: within normal limits Cervical ROM: within normal limits Mallampati: Class III Dentition: full Anesthetic Plan Other: No prior issues with anesthesia NPO since yesterday evening History of hypertension on hydrochlorothiazide and lisinopril GERD on omeprazole IDDM Patient is on tirzepatide. Last taken 04/21/2025 Labs reviewed 04/21/2025 and acceptable for procedure UA treated by primary care Plan for general anesthesia with preop nerve block Medications/Allergies Home Medications ?Medication ?Instructions ?Recorded ?Confirmed ?Last Taken ?Type atorvastatin 20 mg tablet (Lipitor) 20 mg PO DAILY 10/13/19 05/03/25 05/03/25 History omeprazole magnesium 20 mg 20 mg PO .qod 08/05/21 05/03/25 05/03/25 History tablet,delayed release (Prilosec OTC) sertraline 25 mg tablet 12.5 mg PO DAILY 08/05/21 05/03/25 05/03/25 History hydrochlorothiazide 12.5 mg tablet 12.5 mg PO DAILY 09/16/24 05/03/25 05/03/25 History lisinopril 5 mg tablet 5 mg PO DAILY 09/16/24 05/03/25 05/03/25 History ondansetron 4 mg disintegrating 4 mg PO Q6H PRN nausea and 09/16/24 05/03/25 05/03/25 Rx tablet vomiting #14 tabs solifenacin 5 mg tablet 5 mg PO DAILY 09/16/24 05/03/25 05/03/25 History tramadol 50 mg tablet 50 mg PO Q8H PRN pain #21 tabs 04/26/25 05/03/25 05/03/25 Rx tirzepatide 2.5 mg/0.5 mL 2.5 mg (0.5 mL) SUBCUT Q7D 1 month 05/01/25 05/03/25 04/21/25 Rx subcutaneous pen injector #2.5 mL (Mounjaro) insulin glargine 100 unit/mL (3 42 unit SUBCUT DAILY 05/03/25 05/03/25 05/03/25 History mL) subcutaneous pen (Lantus Solostar U-100 Insulin) Allergies Allergy/AdvReac Type Severity Reaction Status Date / Time codeine Allergy Unknown Unknown Verified 04/21/25 08:58 erythromycin base Allergy Unknown Unknown Verified 04/21/25 08:58 Penicillins Allergy Unknown Unknown Verified 04/21/25 08:58 sulfamethoxazole (From Allergy Unknown Unknown Verified 04/21/25 08:58 Bactrim) trimethoprim (From Bactrim) Allergy Unknown Unknown Verified 04/21/25 08:58 Sulfa (Sulfonamide Allergy Unknown Verified 04/21/25 08:58 Antibiotics) metformin AdvReac ADR-Abdominal Verified 04/21/25 08:58 Pain Current Medications Generic Name Dose Route Start Last Admin Trade Name Freq PRN Reason Stop Dose Admin Sodium Chloride 1,000 mls @ 30 mls/hr 05/04/25 07:30 05/04/25 08:53 Sodium Chloride 0.9% IV 05/05/25 07:29 30 mls/hr .Q24H ROCIO Administration PFSH Anesthesia Medical History (Updated 04/27/25 @ 14:01 by MARSHA Summers-LUL[facility]) Osteoarthritis of right acromioclavicular joint Nontraumatic incomplete tear of right rotator cuff Rotator cuff arthropathy of right shoulder Primary osteoarthritis, right shoulder Weakness of right shoulder Right shoulder pain Instability of right knee joint Primary osteoarthritis of right knee Right knee pain Chronic cystitis Hyperlipidemia HTN (hypertension) Overactive bladder Esophageal reflux Female stress incontinence Dysuria Anxiety and depression Enthesopathy, spinal Type 2 diabetes mellitus Urgency incontinence Recurrent UTI Surgical History Hx of cholecystectomy History of hysterectomy Hx of neck surgery Family History Father , at age 83 Diabetes CAD (coronary artery disease) Mother , at age 87 Diabetes Social History Smoking and tobacco/nicotine status: never used tobacco/nicotine Alcohol intake: never Adopted: No Caregiver/support person: No Lives independently: No Household members: spouse Marital status: Current occupational status: employed Current occupation: [employer] Current gender identity: Female
--- NOTE | 2025-05-04 09:16 | W.PM.OPSUD ---
Surgery/Procedure H&P Update DATE OF PROCEDURE: May 04, 2025 DATE H&P PERFORMED: 04/21/25 H&P UPDATE INFORMATION: I have reviewed H&P completed within last 30 days, I have examined patient prior to procedure, No changes to prior documentation, H&P is in [facility] EMR on date indicated and Risks and benefits of the procedure reviewed PREOP DIAGNOSIS: Right Rotator cuff tear PRIMARY INDICATION FOR PROCEDURE: Date of Service: 04/11/25 Procedure(s): MR shoulder RT wo con* [id number] IMPRESSION: 1. There is some distal focal full-thickness tearing of the supraspinatus along with some articular surface partial-thickness tearing changes of the adjacent subscapularis and infraspinatus. No complete tearing with muscular retraction is currently appreciated. 2. There is hypertrophic degeneration of the acromioclavicular junction with bulky spurring and subacromial narrowing contributing to indentation about the myotendinous junction supraspinatus predominantly. PLANNED PROCEDURE: Operation Date: 05/04/25 08:50 Proposed Procedures p Rotator Cuff Repair - Open(Right) - Vijaya Headley MD s Acromioplasty(Right) - Vijaya Headley MD s Distal Clavicle Resection(Right) - Vijaya Headley MD
--- NOTE | 2025-05-04 09:17 | ANES.PROC ---
Anesthesia Procedures Procedure/Date: 05/04/25 Left interscalene peripheral nerve block for postoperative pain control Nerve Block ^: Nerve Block 1: Main Anesthesia: other (100mcg fentanyl ) Time Out Performed: Yes Consent: requested by attending/covering physician and from patient Laterality: Left Nerve block location: interscalene Anesthesia monitors applied: pulse oximetry, EKG, BP cuff and oxygen Nerve block position: supine Anesthetic Used: ropivicaine 0.5% Amount of anesthesia used (mL): 30 Ultrasound used to: recognize landmarks Nerve Stimulator Used?: Yes Interscalene/Femoral BLK: other needle (pjunk 4inch) Injection: neg aspiration of heme Patient Tolerated Procedure: well Complications: none Additional Comments: Decadron 4 mg added to block
--- NOTE | 2025-05-04 09:23 | SUR.PREOP ---
09:05 RIGHT INTRASCALENE NERVE BLOCK PERFORMED BY Dr CARTER USING 30ml OF 0.5% ROPIVACAINE WITH DECADRON 4mg. PT ON WELDING MACHINE FEEDER SHOWING NSR, AND O2 AT 3L/M VIA NASAL CANNULA. PT TOLERATED PROCEDURE WELL.
[2025-05-04] MEDS: ceFAZolin 2,000 mg SDV 2000 MG IVP (10:00)
[2025-05-04] MEDS: ceFAZolin 1,000 mg SDV 1000 MG IRRIGATION (10:14)
--- NOTE | 2025-05-04 11:32 | PM.OP ---
Operative Report Date of procedure: May 04, 2025 Pre-op diagnosis: Right shoulder impingement with osteoarthritis acromioclavicular joint and probable rotator cuff tear Post-op diagnosis: Right shoulder impingement with osteoarthritis acromioclavicular joint and probable rotator cuff tear Post-op findings: Thinning of the rotator cuff at the attachment of the supraspinatus, but no evidence of complete rotator cuff tear, significant impingement and acromioclavicular joint osteoarthritis. Bursitis. Procedure done: Right shoulder acromioplasty with distal clavicle resection and bursal debridement Implants: None Specimens removed/disposition: None Pathology: None Surgeon: Vijaya Headley MD Senior Credit Analyst: Halina Bledsoe, nurse practitioner who services were required for retraction, exposure, closure, and completion of the surgical procedure Anesthesia: General (Intubated with preoperative interscalene block, ASA 3) Estimated blood loss (mL): 5 IV fluids (mL): 600 Urine output (mL): 0 (No Nicole) Complications: None Findings: As noted above Condition: stable Disposition: PACU (Then return to same-day surgery for discharge to home) Brief History: This 69-year-old woman presented to the office with complaints of severe right shoulder pain limiting her activities of daily living. She was unresponsive to conservative measures and wished to proceed with further interventions. MRI demonstrated distal focal full-thickness tearing of the supraspinatus along with articular surface partial-thickness tearing changes of the subscap and infraspinatus tendons. There was no complete tear or muscle retraction. There was hypertrophic degeneration of the acromioclavicular junction with bulky spurring and subacromial narrowing. After discussion in the office, the patient wished to proceed with operative intervention. Consents were signed in the office and questions were answered. Risks and complications were discussed with her again in the morning of surgery, and she had further opportunity to ask questions. Procedure: The patient was brought to the operating theater and underwent general intubated anesthesia, ASA 3, with preoperative supplemental interscalene block, which was well-tolerated. The patient was placed in a beachchair position and subsequently the right upper extremity was prepped and draped in the usual fashion utilizing DuraPrep. The arm was draped free. A surgical pause was performed prior to commencement of the surgical procedure. At the time of the surgical pause, we confirmed the site and side of surgery as well as administration of appropriate preoperative antibiotics, Ancef 2 g. MRI was also reviewed at that time. Following the surgical pause, an incision was made at approximately the level of the acromioclavicular joint extending across the anterolateral corner of the acromion and distally as necessary. Care was taken to avoid injury to the axillary nerve by limiting the distal extent of the incision. Dissection continued through skin and soft tissues using a scalpel. Hemostasis was obtained using electrocautery. Soft tissues were elevated off the acromion and the acromioclavicular joint. The acromioclavicular joint was exposed as well as the anterior lateral border of the acromion. A saw was then used to resect the distal clavicle without difficulty. The undersurface of the clavicle was palpated and was slightly further debrided. A power rasp was used to further smooth the area. When this was felt to be adequately resected, the wound was irrigated. Large osteophytes were also removed from the acromial side of the acromioclavicular joint. An acromioplasty was then accomplished using a combination of a saw and a power rasp. With this, we were able to remove compression caused by the acromion. Impingement was significantly improved following acromioplasty. Significant bursectomy was accomplished as this was quite thickened and erythematous. Following resection of the bursa, the rotator cuff was visually inspected as well as palpated. There was significant thinning at the attachment of the supraspinatus tendon, but there was not a complete tear. The remainder of the rotator cuff was evaluated and no further thinning or tear was identified. The patient was placed through range of motion. There was no further impingement, and no further evidence of pathology. The wound was copiously irrigated. Closure was accomplished with 0 Vicryl in the capsular tissues overlying the acromioclavicular joint area as well as over the acromion and down into the deltoid muscle. 2-0 Monocryl was used to close the subcutaneous tissues followed by 4-0 Monocryl subcuticular closure. This was followed by Dermabond, Steri-Strips, and OpSite. An ABD was placed in the axilla. The patient was placed in a shoulder sling and was returned to the recovery room in satisfactory condition. The patient will be discharged to home to follow-up in office as scheduled. There were no complications and no specimens. Related Problem List Diagnoses 1. Impingement of right shoulder: 2. Osteoarthritis of right acromioclavicular joint: 3. Nontraumatic incomplete tear of right rotator cuff:
--- NOTE | 2025-05-04 13:14 | ANE.PACU2 ---
Inpatient post-anesthesia follow up: Airway intact: Yes Vital signs: Temperature 97.8 F Pulse Rate 74 Respiratory Rate 16 Blood Pressure 130/66 Pulse Oximetry 95 Oxygen Delivery Me thod Room Air Oxygen Flow Rate 2 Fraction of Inspir ed Oxygen Hydration adequate: Yes Nausea and vomiting: No Pain level: 1 Mental status: Baseline
== END 2025-05-04 13:15 | disposition home or self-care (01) ==
PROVIDERS: PCP Nurse Practitioner Family; Visit Provider Specialist
PROC: (CPT 23130; 2025-05-04 08:40)
PROC: (CPT 23120; 2025-05-04 08:40)
DX: M75.41 Impingement syndrome of right shoulder (principal); M19.011 Primary osteoarthritis, right shoulder; M75.51 Bursitis of right shoulder; I10 Essential (primary) hypertension; E11.9 Type 2 diabetes mellitus without complications; K21.9 Gastro-esophageal reflux disease without esophagitis; Z79.4 Long term (current) use of insulin; F41.8 Other specified anxiety disorders; E78.5 Hyperlipidemia, unspecified
CPT/HCPCS: 23130; 23120; 36416; 82962; J0131; J0690; J2704; J7030; J9999